=== PATIENT | male | born 1985 | race Caucasian/White ===

== ENCOUNTER → 2024-10-10 | Outpatient (CLI) | payer BC ==
[2024-10-16 11:02] LABS: TESTOSTERONE, FREE BY DIALYSIS 63.4 pg/mL (47.0-244.0); TESTOSTERONE, TOTAL MASS SPEC 418.0 ng/dL (300.0-1080.0)
== END ==
LOC: LAB 11:56 → LAB SHORT 11:56
PROVIDERS: Student in an Organized Health Care Education/Training Program
DX: Z79.899 Other long term (current) drug therapy (principal)
CPT/HCPCS: 84402; 84403